=== PATIENT | male | born 1950 | race Caucasian/White ===

== ENCOUNTER 2018-05-13 21:31 | Emergency (ER) | payer OTHER, MEDICARE ==
[~2018-05-13] VITALS: Ht 246.4 cm; Wt 117.9 kg
[~2018-05-13 21:31] MED LIST: ACIDOPHILUS1 EAC4 PO; ADULT LOW DOSE81 MG PO; AMBIEN 10 MG TA10 MG; ARAVA20 MG PO; ATORVASTATIN CA40 MG PO; BENICAR40 MG PO; BISOPROLOL FUMA10 MG PO; CEFUROXIME500 MG PO; CLARITIN10 M2 PO; CLONIDINE HCL0.3 M2 PO; COLACE100 MG PO; COREG25 MG PO; COZAAR100 MG PO; CVS PROBIOTIC1 EAC2 PO; DEPO-TESTO100 MG/1 M IM; DESYREL50 MG; EFFEXOR XR150 MG PO; EFFEXOR XR75 MG PO; ENBREL 25 MG KI25 M1 SUBQ; FENTANYL PATCH75 MCG TRANSDERM; FISH OIL 1,0001 EAC5; FLEXERIL PO; FLOMAX0.4 MG PO; FOLIC ACID1 MG PO; GABAPENTIN100 MG PO; GLUCOPHAGE XR750 MG PO; GLUCOSAMINE S1000 M2 PO; HYDROCODON-ACE1 EAC3 PO; HYDROCODON-ACE1 EAC5 PO; HYDROCODON-ACE1 EACH; HYDROCODONE-APA1 TA1; HYDROXYCHLOROQ200 M1 PO; IBUPROFEN 800800 M1; KEFLEX500 MG PO; KLOR-CON 1010 MEQ PO; LASIX 20 MG TAB20 MG PO; LASIX 40 MG TAB40 M2 PO; LIDODERM1 EACH TOP; LISINOPRIL40 MG PO; MAGOX 400400 MG PO; MEDROL DOSPAK21 TAB PO; METHOTREXATE 22.5 MG PO; MIRALAX17 GM PO; MOBIC15 MG PO; MULTIVITAMINS PO; NORCO 5-325 TA1 EACH PO; NORVASC10 MG PO; OMEPRAZOLE40 MG PO; ONDANSETRON HCL4 M2 PO; ORAZINC220 MG PO; PERCOCET 10-321 EACH PO; PERCOCET 5-3251 EACH PO; PREDNISONE 20 M20 MG PO; PREDNISONE 5 MG5 MG PO; RISPERIDONE 00.25 M1 PO; SIMVASTATIN40 MG PO; SULFASALAZINE500 M1 PO; TOPAMAX 100 MG100 MG PO; TOPROL XL200 MG PO; TRAZODONE 150150 M1 PO; TYLENOL325 MG PO; ULTRAM 50MG TAB50 MG PO; UNICOMPLEX M TA1 TA1 PO; ZEBETA PO; ZOCOR 20 MG TAB20 M1 PO; [UNRECOGNIZED DRUG - OTHER]
[2018-05-13 22:03] LABS: HEMATOCRIT 33.6 % (42.0-52.0); HEMOGLOBIN 10.6 gm/dL (14.0-18.0); MCH 28.1 pg (26.0-34.0); MCHC 31.5 g/dL (28.0-37.0); MCV 89.2 fL (80.0-100.0); PLATELET COUNT 231 thou/uL (150-400); RBC 3.77 mil/uL (4.50-6.00); RDW 18.2 % (10.5-14.5); WBC 17.8 thou/uL (4.0-11.0)
[2018-05-13 22:06] LABS: ANION GAP 16 mmol/L (7-16); BUN 43 mg/dL (7-18); CALCIUM 9.6 mg/dL (8.5-10.1); CHLORIDE 102 mmol/L (98-107); CO2 19 mmol/L (21-32); CREATININE 3.9 mg/dL (0.7-1.3); GLUCOSE 103 mg/dL (74-106); POTASSIUM 4.9 mmol/L (3.5-5.1); SODIUM 137 mmol/L (136-145)
[2018-05-13 22:14] LABS: ALBUMIN 2.5 g/dL (3.4-5.0); LIPASE 102 U/L (73-393); SGOT 49 U/L (15-37); SGPT 56 U/L (30-65); TOTAL BILIRUBIN 0.7 mg/dL (<0.1-1.0); TOTAL PROTEIN 6.6 g/dL (6.4-8.2); TROPONIN-I <0.06 ng/mL (<0.06)
[2018-05-13 22:39] LABS: URINE BILIRUBIN NEGATIVE (Negative); URINE BLOOD 3+ (Negative); URINE CLARITY CLOUDY; URINE COLOR YELLOW; URINE GLUCOSE-RANDOM* NEGATIVE (Negative); URINE KETONES NEGATIVE (Negative); URINE NITRITE-REFLEX NEGATIVE (Negative); URINE PROTEIN (DIPSTICK) TRACE (Negative); URINE SPECIFIC GRAVITY 1.015 (1.005-1.035); URINE UROBILINOGEN 0.2 E.U./dl (0.2-1.0)
[2018-05-13 22:40] LABS: URINE LEUKOCYTES-REFLEX 3+ (Negative)
[2018-05-13 22:46] LABS: ABSOLUTE NEUTROPHILS 14.1 thou/uL (1.4-8.2); ANISOCYTOSIS 2+; BURR CELLS 1+; METAMYELOCYTES 3 %; TEARDROPS 1+; TOXIC GRANULATION 1+
[2018-05-13 22:50] LABS: MUCUS 0-3 Light strn/LPF (None Seen); SQUAMOUS 4-10 Moderate /LPF (0-3)
[2018-05-13 22:51] LABS: BACTERIA-REFLEX >30 Many /HPF (None Seen); CASTS None Seen /LPF (None Seen); CRYSTALS None Seen /LPF (None Seen); URINE RBC >20 Many /HPF (0-2); URINE WBC-REFLEX >25 Many /HPF (0-5); WBC CLUMPS Many (None Seen)
[2018-05-14 00:21] VITALS: BP 105/23
--- NOTE | 2018-05-15 19:33 | EKG ---
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: NISSA : 1950 Requested By: Shailesh Carr Order Number: [id number] MD: Erlin Bob Measurements Intervals [place] Rate: 97 P: 30 [place]: 149 QRS: 49 QRSD: 118 T: 54 QT: 374 QTc: 475 Interpretive Statements Sinus rhythm Nonspecific intraventricular conduction delay Baseline artifact present Poor R-wave progression Compared to ECG 10/21/2017 15:14:13 No significant changes Electronically Signed On 05-15-2018 19:32:53 MOTOR VEHICLE TECHNICIAN by Erlin Bob [email or web address] ��������������������������������������������� <ELECTRONICALLY SIGNED> ���������������������������������������� By: Erlin Bob MD ��������������������������������������������� 05/15/18 [phone] Erlin Bob MD /[email or web address]
== END 2018-05-14 00:21 | disposition short-term general hospital (02) ==
LOC: ER 21:31
PROVIDERS: Emergency Medicine
DX: N17.9 Acute kidney failure, unspecified (principal); R65.21 Severe sepsis with septic shock; N13.2 Hydronephrosis with renal and ureteral calculous obstruction; N11.1 Chronic obstructive pyelonephritis; R41.82 Altered mental status, unspecified; R74.0 Nonspecific elevation of levels of transaminase and lactic acid dehydrogenase [LDH]; G47.30 Sleep apnea, unspecified; K21.9 Gastro-esophageal reflux disease without esophagitis; M06.9 Rheumatoid arthritis, unspecified; I10 Essential (primary) hypertension; Z79.899 Other long term (current) drug therapy; Z87.891 Personal history of nicotine dependence